=== PATIENT | female | born 1990 | race Caucasian/White ===

== ENCOUNTER 2018-05-26 17:47 | Emergency (ER) | payer OTHER ==
--- NOTE | 2018-05-26 18:12 | EDPHY ---
HPI/HX/ROS/PE/MDM Narrative: CHIEF COMPLAINT: Head injury HPI: The patient is a 27 y/o female arriving with her friend for evaluation of a head injury sustained one hour ago. She says, "I was sitting on the edge of the bathtub and fell backwards and broke the soap dish with the back of my head. " She is not sure if she lost consciousness and says, "I was just in the bathtub." She has some soreness at the area of impact on the back of her head, but otherwise denies injuries. She applied an ice pack to the back of her head with improvement in her pain. She says since the injury has felt "weepy" and "couldn't stop crying for 12 minutes." She denies vomiting, paresthesias, weakness, vision changes, confusion, or other complaints. She is normally healthy. REVIEW OF SYSTEMS: Aside from elements discussed in the HPI, a comprehensive 10-point review of systems was reviewed and is negative. 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 Friend at bedside. Lives in [place]. PHYSICAL EXAM: General:Patient is alert, in no acute distress. Head: No laceration or abrasion, mild occipital tenderness. ENT:Eyes are normal to inspection. ENT inspection normal. TMs clear bilaterally. Neck: Normal inspection. Full range of motion. Respiratory:No respiratory distress. Breath sounds normal bilaterally. Cardiovascular: Regular rate and rhythm. Strong peripheral pulses. Normal cap refill. Abdomen:The abdomen is nontender to palpation. There are no peritoneal signs. Back: Normal to inspection. No tenderness to palpation. Skin: Normal color. No rash. Warm and dry. Extremities: Normal appearance. Full range of motion. Neuro: Oriented x3. Normal motor function. Normal sensory function. No pronator drift. Normal [id number]. Face symmetric. ED Course: This is a healthy 27 y/o female who presents for evaluation of a head injury. She has mild occipital scalp tenderness on exam with no other external trauma. She is neurovascularly intact. She does not meet criteria for head CT imaging. Discussed treatment options and she is comfortable going home with instructions for supportive care. Return precautions discussed. She is comfortable with this plan. General Time Seen by Provider: 05/26/18 18:02 Initial Vital Signs: Initial Vital Signs Temperature (C) 36.9 C 05/26/18 17:48 Heart Rate 74 05/26/18 17:48 Respiratory Rate 18 05/26/18 17:48 Blood Pressure 127/84 H 05/26/18 17:48 O2 Sat (%) 98 05/26/18 17:48 O2 Delivery Mode Room Air Allergies/Adverse Reactions: dust Allergy (Uncoded 05/26/18 17:54) mold Allergy (Uncoded 05/26/18 17:54) Home Medications: Medication Instructions Recorded NK [No Known Home Meds] 05/26/18 Departure - Departure Disposition: Home, Routine, Self-Care Clinical Impression: Contusion of occipital region of scalp Qualifiers: Encounter type: initial encounter Qualified Code(s): S00.03XA - Contusion of scalp, initial encounter Condition: Good Instructions: Scalp Contusion in Adults (ED) Additional Instructions: 1. Apply ice to sore areas intermittently over the next 24-48 hours if helpful for pain. 2. Okay to use Tylenol and ibuprofen as directed on the packaging if needed for headache. 3. Follow up with your primary care provider if needed for unimproved symptoms over the weekend. 4. Return to the ED for severe pain, weakness or numbness in your extremities, speech difficulty, confusion, vision changes, or other worsening of condition. Referrals: Yarelis Cortez MD [Medical Doctor] - As per Instructions Report Scribed for: Mihir Mead Report Scribed by: Coral Belcher Date of Report: 05/26/18 Time of Report: 18:12 Physician Review and Approval Statement: Portions of this note were transcribed by an ED scribe. I personally performed the history, physical exam, and medical decision making; and confirm the accuracy of the information in the transcribed note.
[2018-05-26 18:24] VITALS: BP 92/47
== END 2018-05-26 18:21 | disposition home or self-care (01) ==
DX: S00.03XA Contusion of scalp, initial encounter (principal)

== ENCOUNTER 2019-03-14 01:32 | Emergency (ER) | payer OTHER ==
[2019-03-14 03:08] LABS: PLATELET COUNT 248 10^3/uL (150-400)
--- NOTE | 2019-03-14 03:43 | EDPHY ---
H & P Stated Complaint: r flank pain Time Seen by Provider: 03/14/19 02:25 HPI/ROS: HPI The patient presents with right-sided abdominal pain which has been present for the last 2 days which started slowly and is getting progressively worse. The pain is dull and achy and has been constant since it began. She has nausea without any vomiting. She has more pain when she is lying on her abdomen. She has not been able to sleep tonight so she comes into the emergency department. She had a normal bowel movement yesterday though is struggled with constipation in the past. She has not had any fevers.. REVIEW OF SYSTEMS 10 systems were reviewed and negative with the exception of the elements mentioned in the history of present illness. PMHx: Healthy Soc Hx: Nonsmoker PHYSICAL General Appearance: Alert, no distress Eyes: Pupils equal and round no pallor or injection ENT, Mouth: Mucous membranes moist Respiratory: There are no retractions, lungs are clear to auscultation Cardiovascular: Regular rate and rhythm Gastrointestinal: Abdomen is soft and tender in the lateral right abdomen near the mid axillary line, no CVA tenderness no masses, bowel sounds normal Neurological: A&O, moves all extremities Skin: Warm and dry, no rashes Musculoskeletal: Neck is supple non tender Extremities: symmetrical, full range of motion Psychiatric: Patient is oriented X 3, there is no agitation Source: Patient Exam Limitations: No limitations - Personal History LMP (Females 10-55): 15-21 Days Ago Current Tetanus/Diphtheria Vaccine: Unsure Current Tetanus Diphtheria and Acellular Pertussis (TDAP): Unsure - Medical/Surgical History Hx Asthma: No Hx Chronic Respiratory Disease: No Hx Diabetes: No Hx Cardiac Disease: No Hx Renal Disease: No Hx Cirrhosis: No Hx Alcoholism: No Hx HIV/AIDS: No Hx Splenectomy or Spleen Trauma: No Other PMH: Denies - Social History Smoking Status: Never smoked Constitutional: Initial Vital Signs Temperature (C) 36.7 C 03/14/19 01:35 Heart Rate 111 H 03/14/19 01:35 Respiratory Rate 18 03/14/19 01:35 Blood Pressure 125/78 H 03/14/19 01:35 O2 Sat (%) 98 03/14/19 01:35 O2 Delivery Mode Room Air Allergies/Adverse Reactions: dust Allergy (Uncoded 05/26/18 17:54) mold Allergy (Uncoded 05/26/18 17:54) Home Medications: Medication Instructions Recorded NK [No Known Home Meds] 05/26/18 Medical Decision Making - Diagnostics Imaging Results: Ultrasound right lower quadrant demonstrates no identified appendix, interpreted by direct Radiology. Differential Diagnosis: 28-year-old healthy female presents with almost 2 days of right-sided abdominal pain which has been constant and associated with nausea. Here she is quite tender in the right lateral abdomen. This raises suspicion for appendicitis which would be retrocecal most likely. Labs were checked and the patient does have an elevated white blood cell count with a left shift. I calculated her Medina score at 5. Plan for ultrasound of her abdomen. Ultrasound was unremarkable. I reassessed the patient, her pain is minimal at this time. I have offered her CT scan abdomen pelvis to rule out appendicitis verses watchful waiting at home. Patient says she lives close to the hospital, is able to return if her pain continues or if she develops fever or vomiting. I feel this is a reasonable plan. She will be discharged home. Differential diagnosis includes appendicitis, constipation, less likely biliary colic. - Data Points Laboratory Results: Laboratory Results 03/14/19 02:55 03/14/19 02:55 03/14/19 03/14/19 03/14/19 02:55 02:55 02:55 WBC 11.95 10^3/uL H 10^3/uL (3.80-9.50) RBC 5.14 10^6/uL 10^6/uL (4.18-5.33) Hgb 14.8 g/dL g/dL (12.6-16.3) Hct 43.7 % % (38.0-47.0) MCV 85.0 fL fL (81.5-99.8) MCH 28.8 pg pg (27.9-34.1) MCHC 33.9 g/dL g/dL (32.4-36.7) RDW 13.3 % % (11.5-15.2) Plt Count 248 10^3/uL 10^3/uL (150-400) MPV 9.9 fL fL (8.7-11.7) Neut % (Auto) 63.9 % % (39.3-74.2) Lymph % (Auto) 21.8 % % (15.0-45.0) [place] % (Auto) 8.5 % % (4.5-13.0) Eos % (Auto) 4.7 % % (0.6-7.6) Baso % (Auto) 0.8 % % (0.3-1.7) Nucleat RBC Rel Count 0.0 % % (0.0-0.2) Absolute Neuts (auto) 7.64 10^3/uL H 10^3/uL (1.70-6.50) Absolute Lymphs (auto) 2.61 10^3/uL 10^3/uL (1.00-3.00) Absolute Monos (auto) 1.01 10^3/uL H 10^3/uL (0.30-0.80) Absolute Eos (auto) 0.56 10^3/uL H 10^3/uL (0.03-0.40) Absolute Basos (auto) 0.10 10^3/uL 10^3/uL (0.02-0.10) Absolute Nucleated RBC 0.00 10^3/uL 10^3/uL (0-0.01) Immature Gran % 0.3 % % (0.0-1.1) Immature Gran # 0.03 10^3/uL 10^3/uL (0.00-0.10) Sodium 137 mEq/L mEq/L (135-145) Potassium 3.8 mEq/L mEq/L (3.5-5.2) Chloride 104 mEq/L mEq/L (97-110) Carbon Dioxide 25 mEq/l mEq/l (22-31) Anion Gap 8 mEq/L mEq/L (6-14) BUN 15 mg/dL mg/dL (7-23) Creatinine 0.7 mg/dL mg/dL (0.6-1.0) Estimated GFR > 60 Glucose 85 mg/dL mg/dL (70-100) Calcium 9.2 mg/dL mg/dL (8.5-10.4) Total Bilirubin 0.3 mg/dL mg/dL (0.1-1.4) AST 21 IU/L IU/L (14-46) ALT 28 IU/L IU/L (9-52) Alkaline Phosphatase 58 IU/L IU/L (38-126) Total Protein 6.8 g/dL g/dL (6.3-8.2) Albumin 4.1 g/dL g/dL (3.5-5.0) Beta HCG, Qual NEGATIVE Departure - Departure Disposition: Home, Routine, Self-Care Clinical Impression: Right sided abdominal pain Condition: Good Instructions: Acute Abdominal Pain (ED) Additional Instructions: The cause of your abdominal pain is not entirely clear. Because of this, you should return to the emergency department if you have any worsening pain, vomiting, fever, any other concerns. If you do not have a primary care doctor and would like when I have listed the name of our on-call outpatient medicine doctor who can see you for primary care if you would like. Referrals: Zaria Tolbert MD [Medical Doctor] - As per Instructions
[2019-03-14 04:26] VITALS: BP 104/73
== END 2019-03-14 04:25 | disposition home or self-care (01) ==
DX: R10.9 Unspecified abdominal pain (principal)